=== PATIENT | female | born 1955 | race Caucasian/White ===

== ENCOUNTER 2017-12-12 15:16 | Emergency (ER) | payer BC ==
[2017-12-12 15:54] VITALS: BP 131/73
--- NOTE | 2017-12-12 16:04 | UC ---
Complaint Female HPI - HPI Summary HPI Summary: Patient is a 62-year-old female with a history of recurrent UTIs presents to the UC with urgency without frequency, no suprapubic tenderness, but endorses pain just at the end of her stream as a burning. She states this feels similar to her previous UTIs. Denies any back pain. Denies any fevers, sweats, chills. Symptoms began this afternoon and have remained constant. She endorses a decrease in fluid intake. Allergic to sulfa and penicillins as well as nitrofurantoin. She has not taken any Pyridium or Uristat. - History Of Current Complaint Chief Complaint: UCGU Stated Complaint: POSS UTI Time Seen by Provider: 12/12/17 15:34 Hx Obtained From: Patient ?: No Onset/Duration: Sudden Onset Timing: Constant Severity Initially: Moderate Severity Currently: Moderate Pain Intensity: 0 Pain Scale Used: 0-10 Numeric Character: Burning Associated Signs And Symptoms: Positive: Negative. Negative: Fever, Back Pain - Risk Factors Ectopic Risk Factor: Negative Ovarian Torsion Risk Factor: Negative - Allergies/Home Medications Allergies/Adverse Reactions: Allergies Allergy/AdvReac Type Severity Reaction Status Date / Time ketorolac [From Toradol] Allergy Rash Verified 12/12/17 15:56 nitrofurantoin Allergy Rash Verified 12/12/17 15:56 [From Macrobid] Penicillins Allergy Rash Verified 12/12/17 15:56 Sulfa (Sulfonamide Allergy Rash Verified 12/12/17 15:56 Antibiotics) Home Medications: Home Medications Atorvastatin* [Lipitor 40 MG*] 40 mg PO DAILY 12/12/17 [History Confirmed ] Bupropion XL* [Wellbutrin XL *] 300 mg PO DAILY 12/12/17 [History Confirmed 07/31] clonazePAM TAB(*) [Klonopin TAB(*)] 1 mg PO BEDTIME 12/12/17 [History Confirmed 12/12/17] PMH/Surg Hx/FS Hx/Imm Hx Previously Healthy: Yes - Surgical History Surgical History: Yes Surgery Procedure, Year, and Place: D&Cs. LUMPECTOMY RIGHT BREAST - Family History Known Family History: Positive: Unknown - Social History Occupation: Employed Full-time Lives: With Family Alcohol Use: Occasionally Substance Use Type: None Smoking Status (MU): Former Smoker Review of Systems Constitutional: Negative Skin: Negative Respiratory: Negative Cardiovascular: Negative Genitourinary: Dysuria, Urgency Motor: Negative Neurovascular: Negative Neurological: Negative Is Patient Immunocompromised?: No All Other Systems Reviewed And Are Negative: Yes Physical Exam Triage Information Reviewed: Yes Appearance: Well-Appearing, Well-Nourished Vital Signs: Initial Vital Signs Temp 98.9 F 12/12/17 15:50 Pulse 93 12/12/17 15:50 Resp 20 12/12/17 15:50 BP 131/73 12/12/17 15:50 Pulse Ox 96 12/12/17 15:50 Vital Signs Reviewed: Yes Eye Exam: Normal Neck exam: Normal Neck: Positive: Supple Respiratory Exam: Normal Respiratory: Positive: Chest non-tender, Lungs clear Cardiovascular Exam: Normal Cardiovascular: Positive: RRR Neurological Exam: Normal Neurological: Positive: Alert Psychological: Positive: Normal Response To Family, Age Appropriate Behavior Skin Exam: Normal Complaint Female Dx - Course Course Of Treatment: During the course of treatment, the patient is evaluated for UTI symptoms. UA shows trace leukocytes. Due to her symptoms, she will be placed on Keflex and will await culture and sensitivities. She is also given Pyridium for comfort. She is okay with this plan at discharge. - Differential Dx/Diagnosis Differential Diagnosis/HQI/PQRI: Urinary Tract Infection Provider Diagnoses: UTI Discharge - Sign-Out/Discharge Documenting (check all that apply): Discharge/Admit/Transfer - Discharge Plan Condition: Stable Disposition: HOME Prescriptions: Cephalexin CAP* [Keflex CAP*] 500 mg PO QID #20 cap MDD 4 Phenazopyridine TAB* [Pyridium 100 mg TAB*] 100 mg PO TID #12 tab Patient Education Materials: Urinary Tract Infection in Women (DC) Referrals: Evette Meléndez MD [Primary Care Provider] - Additional Instructions: Keflex 4 times daily 5 days Pyridium up to 3 times daily for discomfort - Billing Disposition and Condition Condition: STABLE Disposition: HOME
--- NOTE | 2017-12-14 16:30 | UC ---
- Progress Note Progress Note: patient does not have bacteria in her urine culture---call patient and assure her symptoms have resolved if not return for further evaluation of follow with pcp--stop Keflex Discharge - Sign-Out/Discharge Documenting (check all that apply): Discharge/Admit/Transfer - Discharge Plan Condition: Stable Disposition: HOME Prescriptions: Cephalexin CAP* [Keflex CAP*] 500 mg PO QID #20 cap MDD 4 Phenazopyridine TAB* [Pyridium 100 mg TAB*] 100 mg PO TID #12 tab Patient Education Materials: Urinary Tract Infection in Women (DC) Referrals: Evette Meléndez MD [Primary Care Provider] - Additional Instructions: Keflex 4 times daily 5 days Pyridium up to 3 times daily for discomfort - Billing Disposition and Condition Condition: STABLE Disposition: HOME
== END 2017-12-12 16:00 | disposition home or self-care (01) ==
LOC: UCEAST 15:16
DX: N39.0 Urinary tract infection, site not specified (principal); Z87.440 Personal history of urinary (tract) infections; Z88.1 Allergy status to other antibiotic agents; Z88.5 Allergy status to narcotic agent; Z88.0 Allergy status to penicillin; Z88.2 Allergy status to sulfonamides; Z87.891 Personal history of nicotine dependence
CPT/HCPCS: 81003; 87086; 99202; G0463

== ENCOUNTER 2019-07-27 08:24 | Emergency (ER) | payer BC ==
[2019-07-27 08:35] VITALS: BP 132/71
--- NOTE | 2019-07-27 09:16 | UC ---
Complaint Female HPI - HPI Summary HPI Summary: The patient is a 64-year-old female that presents here with a two-week history of dysuria urgency and frequency. She denies any fever or chills. She denies any back pain. She denies any nausea vomiting or diarrhea. She does have a history kidney stones as well as a history of kidney infections. She states her last urinary tract infection was over a year ago. - History Of Current Complaint Chief Complaint: UCGU Stated Complaint: URINARY ISSUE Time Seen by Provider: 07/27/19 09:10 Hx Obtained From: Patient Onset/Duration: Gradual Onset, Lasting Weeks Timing: Intermittent, Lasting Seconds Severity Initially: Moderate Severity Currently: None Pain Intensity: 7 - when urinating Character: Burning Aggravating Factor(s): Urination Alleviating Factor(s): Nothing Associated Signs And Symptoms: Negative: Fever, Back Pain, Vaginal Bleeding/ Discharge, Vaginal Discharge, Nausea, Vomiting(# Of Episodes =), Genital Swelling, Genital Blisters, Retained Foregin Body (Specify) Related Hx: Similar Episode/Dx as: - UTI - Allergies/Home Medications Allergies/Adverse Reactions: Allergies Allergy/AdvReac Type Severity Reaction Status Date / Time ketorolac [From Toradol] Allergy Rash Verified 07/27/19 08:35 nitrofurantoin Allergy Rash Verified 07/27/19 08:35 [From Macrobid] Penicillins Allergy Rash Verified 07/27/19 08:35 Sulfa (Sulfonamide Allergy Rash Verified 07/27/19 08:35 Antibiotics) PMH/Surg Hx/FS Hx/Imm Hx Previously Healthy: Yes Endocrine History: Dyslipidemia - Surgical History Surgical History: Yes Surgery Procedure, Year, and Place: D&Cs. LUMPECTOMY RIGHT BREAST - Family History Known Family History: Positive: Non-Contributory - Social History Alcohol Use: Occasionally Substance Use Type: None Smoking Status (MU): Former Smoker Review of Systems All Other Systems Reviewed And Are Negative: Yes Constitutional: Positive: Negative Skin: Positive: Negative Eyes: Positive: Negative ENT: Positive: Negative Respiratory: Positive: Negative Cardiovascular: Positive: Negative Gastrointestinal: Positive: Negative Genitourinary: Positive: Dysuria, Frequency, Urgency Motor: Positive: Negative Neurovascular: Positive: Negative Musculoskeletal: Positive: Negative Neurological: Positive: Negative Psychological: Positive: Negative Physical Exam Triage Information Reviewed: Yes Appearance: Well-Appearing, No Pain Distress, Well-Nourished Vital Signs: Initial Vital Signs Temp 97.3 F 07/27/19 08:32 Pulse 76 07/27/19 08:32 Resp 20 07/27/19 08:32 BP 132/71 07/27/19 08:32 Pulse Ox 100 07/27/19 08:32 Vital Signs Reviewed: Yes Eyes: Positive: Conjunctiva Clear ENT: Positive: Hearing grossly normal. Negative: Nasal congestion, Nasal drainage, Trismus, Hoarse voice Neck: Positive: Supple, Nontender, No Lymphadenopathy Respiratory: Positive: Lungs clear, Normal breath sounds, No respiratory distress Cardiovascular: Positive: RRR, No Murmur Abdomen Description: Positive: Nontender Musculoskeletal: Positive: ROM Intact, No Edema Neurological: Positive: Alert Psychological Exam: Normal Skin Exam: Normal Complaint Female Dx - Course Course Of Treatment: UA ++rbc.+++ leuks - Differential Dx/Diagnosis Provider Diagnosis: Acute cystitis Discharge ED - Sign-Out/Discharge Documenting (check all that apply): Patient Departure All imaging exams completed and their final reports reviewed: No Studies - Discharge Plan Condition: Stable Disposition: HOME Prescriptions: Cephalexin CAP* [Keflex CAP*] 500 mg PO TID #21 cap Phenazopyridine TAB* [Pyridium TAB*] 100 mg PO TID #6 tab Patient Education Materials: Urinary Tract Infection in Women (ED) Referrals: Gwen Betts DO [Primary Care Provider] - If Needed Additional Instructions: A urine culture is pending recheck in 2-3 days if not better - Billing Disposition and Condition Condition: STABLE Disposition: Home
== END 2019-07-27 09:27 | disposition home or self-care (01) ==
LOC: UCEAST 08:24
DX: N30.00 Acute cystitis without hematuria (principal); Z87.891 Personal history of nicotine dependence; Z88.0 Allergy status to penicillin; Z88.1 Allergy status to other antibiotic agents; Z88.2 Allergy status to sulfonamides; Z88.6 Allergy status to analgesic agent
CPT/HCPCS: 81003; 87077; 87086; 87186; 99212; G0463